=== PATIENT | female | born 1935 | race Two or more races ===

== ENCOUNTER → 2018-09-18 | Emergency (ER) | payer OTHER ==
[~2018-09-18] VITALS: Ht 152.4 cm; Wt 54.4 kg
== END | disposition home or self-care (01) ==
LOC: ER 19:54
DX: S01.01XA Laceration without foreign body of scalp, initial encounter (principal); W18.09XA Striking against other object with subsequent fall, initial encounter; Y93.89 Activity, other specified; Y92.098 Other place in other non-institutional residence as the place of occurrence of the external cause; Y99.8 Other external cause status

== ENCOUNTER 2018-09-30 09:14 | Emergency (ER) | payer OTHER ==
[~2018-09-30] VITALS: Ht 160 cm; Wt 45.4 kg
== END 2018-09-30 11:58 | disposition home or self-care (01) ==
LOC: ER 09:14 → EDSEX 09:14 → ER 09:23
DX: Z48.02 Encounter for removal of sutures (principal)